=== PATIENT | female | born 1965 | race Two or more races ===

== ENCOUNTER 2018-01-05 12:58 | Emergency (ER) | payer SELFPAY ==
[~2018-01-05] VITALS: Ht 167.6 cm; Wt 85.0 kg
[2018-01-05 13:26] VITALS: BP 117/68
== END 2018-01-05 19:35 | disposition left against medical advice (07) ==
LOC: ER 17:49
DX: Z53.21 Procedure and treatment not carried out due to patient leaving prior to being seen by health care provider (principal)